=== PATIENT | female | born 1970 | race Hispanic/Latino ===

== ENCOUNTER → 2022-08-09 | Outpatient (CLI) | payer OTHER | END | disposition home or self-care (01) | LOC: SHCH 09:21 | PROVIDERS: ATTEND Student in an Organized Health Care Education/Training Program | DX: I10 Essential (primary) hypertension (principal); E11.9 Type 2 diabetes mellitus without complications; R06.02 Shortness of breath; E78.5 Hyperlipidemia, unspecified | CPT/HCPCS: 93306 ==

== ENCOUNTER 2022-10-01 05:33 | Day surgery (SDC) | payer OTHER ==
[2022-09-28 09:38] LABS: APPEARANCE,URINE CLEAR (CLEAR); BILIRUBIN,URINE NEGATIVE (NEGATIVE); COLOR,URINE COLORLESS (YELLOW); GLUCOSE, URINE (UA) >=1000 mg/dL (NEGATIVE); KETONES,URINE NEGATIVE (NEGATIVE); LEUKOCYTE ESTERASE ,URINE NEGATIVE Leu/uL (NEGATIVE); NITRATE,URINE NEGATIVE (NEGATIVE); OCCULT BLOOD,URINE NEGATIVE (NEGATIVE); PROTEIN,URINE NEGATIVE (NEGATIVE); UROBILINOGEN,URINE 0.2 mg/dL (0.2-1.0)
[2022-09-28 09:41] LABS: MUCUS,URINE RARE LPF (None Seen); RBC,URINE 0-1 /HPF (0-1); SQUAMOUS EPITHELIAL CELL,UR RARE /HPF (0-2); WBC,URINE 0-1 /HPF (0-1)
[2022-09-28 09:55] LABS: BASOPHILS % (AUTO) 0.4 % (0.0-5.0); EOSINOPHILS % (AUTO) 1.8 % (0.0-8.0); HEMATOCRIT 45.3 % (36-48); LYMPHOCYTES % (AUTO) 16.1 % (21.0-51.0); MEAN CORPUSCULAR HEMOGLOBIN 30.1 pg (27.0-33.0); MEAN CORPUSCULAR HGB CONC 31.6 g/dL (32.0-36.0); MEAN CORPUSCULAR VOLUME 95.4 fL (79-99); MONOCYTES % (AUTO) 6.1 % (3.0-13.0); NEUTROPHILS % (AUTO) 75.2 % (40.0-77.0); PLATELET COUNT (AUTO) 231 K/uL (130-400); RED BLOOD CELL COUNT(AUTO) 4.75 MIL/uL (4.00-5.50); RED CELL DISTRIBUTION WIDTH 13.7 % (11.0-15.5); WHITE BLOOD COUNT (AUTO) 12.5 K/uL (4.8-10.8)
[2022-09-28 10:08] LABS: INR 0.93 (0.85-1.15)
[2022-09-28 10:09] LABS: PARTIAL THROMBOPLASTIN TIME 29.9 SEC (26.3-35.5)
[2022-09-28 10:13] LABS: POTASSIUM 3.4 mmol/L (3.5-5.1)
[2022-09-28 10:14] VITALS: BP 97/60
[~2022-10-01] VITALS: Ht 149.9 cm; Wt 73.9 kg
[~2022-10-01 05:33] MED LIST: ALBUTEROL IH; ASPI-1443 PO; BUSP5TAB3 PO; CARB10DR8 OP; DAPA10TA PO; DULA0.75 SQ; FAMO40TA7 PO; FURO40TA5 PO; INSU300I3 SQ; IPRATROPIUM BR IH; LOSA50TA64 PO; METF-444 PO; METO-391 PO; MYCO500T5 PO; OXYGEN IH; PANT40TA54 PO; PREDNISOLONE PO
[2022-10-01 06:00] VITALS: BP 100/53
[2022-10-01] MEDS ORDERED: 0.9%NACL 1000ML 1,000 ML IV ONE (06:48)
[2022-10-01] MEDS ORDERED: IODIXANOL 320 MG/ML 100 ML VIAL ONE (07:09)
[2022-10-01] MEDS ORDERED: LIDOCAINE HCL 400MG/20ML VIAL ONE (07:09)
[2022-10-01] MEDS ORDERED: HEPARIN 10,000 UNIT/10ML (1,000 UNIT/ML) VIAL ONE (07:10)
[2022-10-01] MEDS ORDERED: NITROGLYCERIN 50MG VIAL ONE (07:10)
[2022-10-01] MEDS ORDERED: MIDAZOLAM HCL 1 MG/ML 2ML VIAL ONE (07:10)
[2022-10-01] MEDS ORDERED: FENTANYL CITRATE PF 50 MCG/1 ML 2ML VIAL ONE (07:16)
[2022-10-01] MEDS ORDERED: DEXTROSE 50%-WATER 50 ML DISP.SYRIN IV PRN (08:30)
[2022-10-01] MEDS ORDERED: GLUCAGON 1MG KIT 1 MG ML IM PRN (08:30)
[2022-10-01 08:35] VITALS: BP 98/51
[2022-10-01 08:50] VITALS: BP 103/52
[2022-10-01 09:05] VITALS: BP 91/45
[2022-10-01 09:20] VITALS: BP 86/36
[2022-10-01 09:25] VITALS: BP 96/51
== END 2022-10-01 09:40 | disposition home or self-care (01) ==
LOC: DAH 05:33
PROVIDERS: ATTEND Student in an Organized Health Care Education/Training Program
DX: I27.20 Pulmonary hypertension, unspecified (principal); I10 Essential (primary) hypertension; E78.5 Hyperlipidemia, unspecified; E11.9 Type 2 diabetes mellitus without complications; Z79.01 Long term (current) use of anticoagulants; Z79.899 Other long term (current) drug therapy; Z79.84 Long term (current) use of oral hypoglycemic drugs; Z98.890 Other specified postprocedural states; Z79.82 Long term (current) use of aspirin
CPT/HCPCS: 80048; 83880; 85025; 85610; 85730; 81001; 36415; 71045; 93005; 93451; 82948 ×3; C1894; J3010; J3490 ×2; J7030; J1644 ×2; J2250; A4215; A4222; A4221; A4663; A4216; A4606; A4223 ×3; 99156; 99157; Q9967